=== PATIENT | male | born 1970 | race Caucasian/White ===

== ENCOUNTER 2020-10-21 14:28 | Emergency (ER) | payer SELFPAY ==
[2020-10-21] MEDS ORDERED: CEPHALEXIN500 M1 PO (18:06)
== END 2020-10-21 17:48 | disposition home or self-care (01) ==
LOC: ED 14:28
DX: S81.812A Laceration without foreign body, left lower leg, initial encounter (principal); W45.8XXA Other foreign body or object entering through skin, initial encounter; Y93.89 Activity, other specified; Y92.89 Other specified places as the place of occurrence of the external cause; Y99.8 Other external cause status